=== PATIENT | female | born 1995 | race American Indian/Alaskan Native ===

== ENCOUNTER 2020-11-10 20:54 | Emergency (ER) | payer SELFPAY ==
[2020-11-10] MEDS ORDERED: Ondansetron 4 MG/2 ML SDV IVPUSH ONE (22:09)
[2020-11-10] MEDS ORDERED: Sodium Chloride 0.9% 1,000 ML IV SCH (22:15)
--- NOTE | 2020-11-10 22:16 | EDM.PDOCBH ---
ED HPI GENERAL MEDICAL PROBLEM - General Chief Complaint: Drug or Alcohol Abuse Stated Complaint: [facility] Time Seen by Provider: 11/10/20 22:01 Source of Information: Reports: Patient History Limitations: Reports: No Limitations - History of Present Illness INITIAL COMMENTS - FREE TEXT/NARRATIVE: Ms. Alicea is a 25-year-old woman who is now brought to the ED by EMS. I am told that she lives in [place], but that she is working for the summer in [place]. She apparently became intoxicated tonight and threatened suicide. Someone called EMS. We are told that the patient said something about suicidal ideation to one of the EMS technicians, but then retracted it. Upon arrival to the ED, she was apparently ataxic and denied suicidal ideation. When I went to evaluate her, she was sleeping soundly and resisted examination. She did not answer any questions for me. At triage, the patient is found to be hemodynamically stable, afebrile, saturating 99% on room air. Due to the patient's intoxication, a recent review of systems, PMHx, PSHx, and SocHx are not obtainable. It is unknown if the patient has a PCP. - Related Data Allergies Allergy/AdvReac Type Severity Reaction Status Date / Time No Known Allergies Allergy Verified 11/10/20 21:06 Home Meds: Home Meds . [No Known Home Meds] 11/10/20 [History] Past Medical History Psychiatric History: Reports: Anxiety (untreated) Endocrine/Metabolic History: Reports: Hypothyroidism (untreated) - Past Surgical History HEENT Surgical History: Reports: Oral Surgery (dental extractions) GI Surgical History: Reports: Cholecystectomy (2019) Social & Family History - Tobacco Use Tobacco Use Status *Q: Former Tobacco User Years of Tobacco use: 5 Packs/Tins Daily: 0.2 Month/Year Tobacco Last Used: Quit May 2019 Tobacco Use Comment: Started smoking 2014 - Alcohol Use Alcohol Use History: Yes Alcohol Use Frequency: Binges (on weekends) - Recreational Drug Use Recreational Drug Use: No - Living Situation & Occupation Living situation: Reports: Single, Other (With friends) Occupation: Employed ([employer] in [place]) ED ROS GENERAL - Review of Systems Review Of Systems: Comprehensive ROS is negative, except as noted in HPI. ED EXAM, BEHAVIORAL HEALTH - Physical Exam Exam: See Below Exam Limited By: Intoxication (strong smell of alcohol) General Appearance: WD/WN, No Apparent Distress Eye Exam: Bilateral Eye: EOMI, Normal Inspection Ears: Normal External Exam, Hearing Grossly Normal Nose: Normal Inspection Throat/Mouth: Normal Inspection, Normal Lips, No Airway Compromise Head: Atraumatic, Normocephalic Neck: Normal Inspection, Full Range of Motion Respiratory/Chest: No Respiratory Distress, Lungs Clear, Normal Breath Sounds, No Accessory Muscle Use Cardiovascular: Normal Peripheral Pulses, Regular Rate, Rhythm, No Edema, No Gallop, No JVD, No Murmur, No Rub GI/Abdominal: Normal Bowel Sounds, Soft, Non-Tender, No Organomegaly, No Distention, No Abnormal Bruit, No Mass Back Exam: Normal Inspection, Full Range of Motion, NT Extremities: Normal Inspection, Normal Range of Motion, No Pedal Edema, Normal Capillary Refill Neurological: No Motor/Sensory Deficits (moves all 4 extremities spontaneously), Other (Sleeping soundly, resistant to examination) Skin Exam: Warm, Dry, Intact, Normal color, No rash #1 Interpretation EKG Date: 11/10/20 Time: 22:23 Rhythm: NSR Rate (Beats/Min): 94 [place]: Normal P-Wave: Enlarged (LAE) QRS: Normal ST-T: Normal QT: Normal Comparison: NA - No Prior EKG COURSE, BEHAVIORAL HEALTH COMP - Course Vital Signs: Last Vital Signs Temp 36.1 C 11/10/20 21:04 Pulse 90 11/10/20 21:04 Resp 16 11/10/20 21:04 BP 108/72 11/10/20 21:04 Pulse Ox 99 11/10/20 21:04 Orders, Labs, Meds: Active Orders 24 hr Category Date Time Status EKG Documentation Completion [RC] STAT Care 11/10/20 22:08 Active D5 1/2 NS w/ 20 mEq/L KCl 1,000 ml Med 11/10/20 23:45 Active IV ASDIRECTED Medication Orders Potassium Chloride/Dextrose/Sod Cl (D5 1/2 Ns W/ 20 Meq/L Kcl) 1,000 mls @ 150 mls/hr IV ASDIRECTED NACHO Last Admin: 11/10/20 23:53 Dose: 150 mls/hr Documented by: MADHURI Laboratory Tests 11/10/20 11/10/20 11/10/20 Range/Units 22:20 22:20 22:20 WBC 10.78 H (3.98-10.04) K/mm3 RBC 3.95 L (3.98-5.22) M/mm3 Hgb 12.0 (11.2-15.7) gm/dl Hct 37.9 (34.1-44.9) % MCV 95.9 H (79.4-94.8) fl MCH 30.4 (25.6-32.2) pg MCHC 31.7 L (32.2-35.5) g/dl RDW Std Deviation 48.0 H (36.4-46.3) fL Plt Count 297 (182-369) K/mm3 MPV 10.6 (9.4-12.3) fl Neutrophils % (Manual) 71 H (40-60) % Band Neutrophils % 0 (0-10) % Lymphocytes % (Manual) 25 (20-40) % Atypical Lymphs % 0 % Monocytes % (Manual) 4 (2-10) % Eosinophils % (Manual) 0 L (0.7-5.8) % Basophils % (Manual) 0 L (0.1-1.2) Platelet Estimate Adequate Hypochromasia 1+ slight Anisocytosis 1+ slight RBC Morph Comment Abnormal Sodium 150 H (136-145) mEq/L Potassium 3.4 L (3.5-5.1) mEq/L Chloride 111 H (98-107) mEq/L Carbon Dioxide 24 (21-32) mEq/L Anion Gap 18.4 H (5-15) BUN 11 (7-18) mg/dL Creatinine 0.8 (0.55-1.02) mg/dL Est Cr Clr Drug Dosing TNP Estimated GFR (MDRD) > 60 (>60) mL/min BUN/Creatinine Ratio 13.8 L (14-18) Glucose 101 H (70-99) mg/dL Calcium 8.2 L (8.5-10.1) mg/dL Total Bilirubin 0.1 L (0.2-1.0) mg/dL AST 19 (15-37) U/L ALT 27 (14-59) U/L Alkaline Phosphatase 118 H (46-116) U/L Total Protein 7.7 (6.4-8.2) g/dl Albumin 3.7 (3.4-5.0) g/dl Globulin 4.0 gm/dL Albumin/Globulin Ratio 0.9 L (1-2) TSH 3rd Generation 0.266 L (0.358-3.74) uIU/mL Urine HCG, Qual (NEGATIVE) Salicylates 0.7 L (2.8-20) mg/dL Urine Opiates Screen (HHBFHV=134) Ur Buprenorphine Scrn (CUTOFF=10) Ur Oxycodone Screen (MQH3XA=428) Urine Methadone Screen (ZHTQIG=315) Ur Propoxyphene Screen (ICKIZT=956) Acetaminophen 0 L (10-30) ug/mL Ur Barbiturates Screen (EZGIAW=101) Ur Tricyclics Screen (KAKWNY=856) Ur Phencyclidine Scrn (CUTOFF=25) Ur Amphetamine Screen (UJFWIN=814) U Methamphetamines Scrn (UNGWLW=878) U Benzodiazepines Scrn (YUIDDK=917) U Cocaine Metab Screen (DJNRUX=308) U Marijuana (THC) Screen (CUTOFF=50) Ethyl Alcohol 0.32 (0.00) gm% SARS-CoV-2 RNA (BHARAT) (NEGATIVE) 11/10/20 11/10/20 11/10/20 Range/Units 22:20 22:27 22:27 WBC (3.98-10.04) K/mm3 RBC (3.98-5.22) M/mm3 Hgb (11.2-15.7) gm/dl Hct (34.1-44.9) % MCV (79.4-94.8) fl MCH (25.6-32.2) pg MCHC (32.2-35.5) g/dl RDW Std Deviation (36.4-46.3) fL Plt Count (182-369) K/mm3 MPV (9.4-12.3) fl Neutrophils % (Manual) (40-60) % Band Neutrophils % (0-10) % Lymphocytes % (Manual) (20-40) % Atypical Lymphs % % Monocytes % (Manual) (2-10) % Eosinophils % (Manual) (0.7-5.8) % Basophils % (Manual) (0.1-1.2) Platelet Estimate Hypochromasia Anisocytosis RBC Morph Comment Sodium (136-145) mEq/L Potassium (3.5-5.1) mEq/L Chloride (98-107) mEq/L Carbon Dioxide (21-32) mEq/L Anion Gap (5-15) BUN (7-18) mg/dL Creatinine (0.55-1.02) mg/dL Est Cr Clr Drug Dosing Estimated GFR (MDRD) (>60) mL/min BUN/Creatinine Ratio (14-18) Glucose (70-99) mg/dL Calcium (8.5-10.1) mg/dL Total Bilirubin (0.2-1.0) mg/dL AST (15-37) U/L ALT (14-59) U/L Alkaline Phosphatase (46-116) U/L Total Protein (6.4-8.2) g/dl Albumin (3.4-5.0) g/dl Globulin gm/dL Albumin/Globulin Ratio (1-2) TSH 3rd Generation (0.358-3.74) uIU/mL Urine HCG, Qual Negative (NEGATIVE) Salicylates (2.8-20) mg/dL Urine Opiates Screen Negative (STJAVD=475) Ur Buprenorphine Scrn Negative (CUTOFF=10) Ur Oxycodone Screen Negative (BWX0NU=707) Urine Methadone Screen Negative (HDIRDS=219) Ur Propoxyphene Screen Negative (BXTBDH=588) Acetaminophen (10-30) ug/mL Ur Barbiturates Screen Negative (QJGGRL=052) Ur Tricyclics Screen Negative (AOPESZ=098) Ur Phencyclidine Scrn Negative (CUTOFF=25) Ur Amphetamine Screen Negative (FNMSWL=689) U Methamphetamines Scrn Negative (POEEAX=618) U Benzodiazepines Scrn Negative (BSCGYF=473) U Cocaine Metab Screen Negative (CPDGSX=581) U Marijuana (THC) Screen Negative (CUTOFF=50) Ethyl Alcohol (0.00) gm% SARS-CoV-2 RNA (BHARAT) Negative (NEGATIVE) Medications Generic Name Dose Route Start Last Admin Trade Name Freq PRN Reason Stop Dose Admin Potassium Chloride/Dextrose/Sod Cl 1,000 mls @ 150 mls/hr 11/10/20 23:45 11/10/20 23:53 D5 1/2 Ns W/ 20 Meq/L Kcl IV 150 mls/hr ASDIRECTED NACHO Administration Discontinued Medications Generic Name Dose Route Start Last Admin Trade Name Freq PRN Reason Stop Dose Admin Sodium Chloride 1,000 mls @ 150 mls/hr 11/10/20 22:15 11/10/20 22:28 Normal Saline IV 150 mls/hr ASDIRECTED NACHO Administration Ondansetron HCl 4 mg 11/10/20 22:09 11/10/20 22:29 Ondansetron 4 Mg/2 Ml Sdv IVPUSH 11/10/20 22:10 4 mg ONETIME ONE Administration Medical Clearance: 11/10/20 22:10 As above, the patient became intoxicated, then apparently voiced some suicidal ideation, prompting someone to call EMS. She apparently said something suicidal to one of the EMS technicians, but then retracted it, and she has denied it here. When I evaluated the patient, she was lethargic, not answering any questions, and turning away when I examined her. I have ordered a standard psychiatric medical clearance panel. She will be given IV fluid and IV Zofran. 11/10/20 23:39 The patient's CBC is remarkable for mild leukocytosis of 10.78, but with 0% bandemia, and the remainder of her CBC being unremarkable. Her CMP is remarkable for hypernatremia of 150, with slight hypokalemia of 3.4. Her anion gap is slightly elevated at 18.4, but with a bicarbonate normal at 24, and slight hyperglycemia of 101. Her alkaline phosphatase is slightly elevated at 118, with remainder of her CMP being unremarkable. Her TSH is depressed at 0.266. Her salicylate level is within normal limits at 0.7. Her acetaminophen level is 0. Her EtOH level is significantly elevated at 0.32. Her urine drug screen is negative. Her urine test is negative. Her swab for the SARS-CoV-2 virus is negative. While there is free water in NS, the patient's hyponatremia will correct faster with D5 1/2 NS, which I have ordered at 150 mL/h. The IV fluid will contain KCl 20 mEq/L, Which will also correct the patient's slight hypokalemia. The plan will be to keep her here in the ED to receive IV fluid, and in the morning, once she is sober, I will talk to her about suicidal ideation. 11/11/20 05:16 The patient is now sober and lucid. She states that she was drinking last night because she misses her family, back in [place]. She acknowledges that she has a history of untreated anxiety, but denies feeling depressed or suicidal. She states that she drinks heavily on weekends, and that she has had 2 DUIs, and has been to inpatient treatment twice, first in 2012, then again in 2019. She does not attend outpatient alcohol treatment. She denies drug use. She states that she has a history of untreated hypothyroidism. She denies recent illness. I will discharge her home with a referral to [facility], in case she feels depressed or suicidal. I also recommended that she follow-up with a PCP regarding her low TSH level. Departure - Departure Time of Disposition: 05:18 Disposition: Home, Self-Care 01 Condition: Good Clinical Impression: Alcohol intoxication, Alcohol dependence, binge pattern, Low TSH level, Hypernatremia - Discharge Information *PRESCRIPTION DRUG MONITORING PROGRAM REVIEWED*: Not Applicable *COPY OF PRESCRIPTION DRUG MONITORING REPORT IN PATIENT STEVE: Not Applicable Referrals: Mayra Brooke NP [Nurse Practitioner] - Forms: ED Department Discharge Additional Instructions: You were seen in the emergency room after becoming intoxicated and threatening suicide. Work-up in the ER included numerous blood tests, a urine drug screen, a urine test, a swab for the SARS-CoV-2 virus, and an ECG. Your alcohol level returned substantially elevated at 0.32. For reference, that is 4 times the upper legal limit for driving. Your TSH (thyroid-stimulating hormone) returned low at 0.266. This indicates that you may have hypERthyroidism, however, hyperthyroidism cannot be diagnosed from a single TSH level in the ER. We recommend that you follow-up in this matter with Mayra Brooke NP, or one of the other providers in the clinic. Your sodium level was found to be elevated at 150, indicating that you were dehydrated. You were given IV fluid overnight. The remainder of your work-up was unremarkable. We strongly recommend that you follow-up at [facility] to address your binge drinking, and, if you are feeling depressed or suicidal, they can help you with that, as well: [address] [place] [phone] If any other problems, please do not hesitate to return to the ER. Sepsis Event Note (ED) - Evaluation Sepsis Screening Result: No Definite Risk - Focused Exam Vital Signs: Vital Signs Temp Pulse Resp BP Pulse Ox 11/10/20 21:04 36.1 C 90 16 108/72 99 - My Orders Last 24 Hours: My Active Orders 11/10/20 22:08 EKG Documentation Completion [RC] STAT 11/10/20 23:45 D5 1/2 NS w/ 20 mEq/L KCl 1,000 ml IV ASDIRECTED - Assessment/Plan Last 24 Hours: My Active Orders 11/10/20 22:08 EKG Documentation Completion [RC] STAT 11/10/20 23:45 D5 1/2 NS w/ 20 mEq/L KCl 1,000 ml IV ASDIRECTED
[2020-11-10 23:07] LABS: ACETAMINOPHEN 0 ug/mL (10-30)
[2020-11-10] MEDS ORDERED: D5 1/2 NS w/ 20 mEq/L KCl 1,000 ML IV SCH (23:45)
== END 2020-11-11 06:44 | disposition home or self-care (01) ==
LOC: JD.ED 20:54
DX: F10.229 Alcohol dependence with intoxication, unspecified (principal); R94.6 Abnormal results of thyroid function studies; E87.0 Hyperosmolality and hypernatremia; Y90.5 Blood alcohol level of 100-119 mg/100 ml; Z20.822 Contact with and (suspected) exposure to COVID-19; Z87.891 Personal history of nicotine dependence
CPT/HCPCS: 36415; 80053; 80143; 80179; 80306; 80307; 81025; 84443; 85007; 85027; 87635; 93005; 96374; 99284; J2405; J3480; J7030; U0002